=== PATIENT | female | born 1990 | race Caucasian/White ===

== ENCOUNTER 2018-10-07 09:04 | Emergency (ER) | payer BC ==
[2018-10-07 09:21] VITALS: BP 109/68
--- NOTE | 2018-10-07 10:44 | UC ---
Hip/Pelvis Pain - HPI Summary HPI Summary: 28 year old female with PMH + for anxiety, UTIs in past, presents with pelvic symtoms ~ 1 week ago noted thin white discharge wtih + vaginal itching, irritation. treated with monistat 1. Afterwards noted increased pain, swelling of labia, thin discharge. no odor. Denies fever. this AM had sexual intercourse with severe pain with penetration. no irritation around outside of vagina. Pain resolving, but was quite severe. no fever, chills. no other symptoms,- nausea, vomiting - History Of Current Complaint Chief Complaint: UCGU Stated Complaint: PELVIC PAIN Time Seen by Provider: 10/07/18 09:55 Hx Obtained From: Patient Hx Last Menstrual Period: pt has an IUD and states not getting a menses ?: No - IUD placed Onset/Duration: Sudden Onset, Lasting Weeks - x 1 week Severity Initially: Mild Severity Currently: Moderate Pain Intensity: 4 Pain Scale Used: 0-10 Numeric Location: Discrete At: - pelvic area Character Of Pain: Sharp - with sex, Aching - at rest Alleviating Factor(s): Nothing Associated Signs And Symptoms: Positive: Negative, Abdominal Pain - Allergies/Home Medications Allergies/Adverse Reactions: Allergies Allergy/AdvReac Type Severity Reaction Status Date / Time Penicillins Allergy Hives Verified 10/07/18 09:28 Sulfa (Sulfonamide Allergy Hives Verified 10/07/18 09:28 Antibiotics) Home Medications: Home Medications Iud 10/07/18 [History] busPIRone TAB* [Buspar TAB*] 7.5 mg PO BID 10/07/18 [History Confirmed 10/07/18] PMH/Surg Hx/FS Hx/Imm Hx Previously Healthy: Yes - Surgical History Surgical History: Yes Surgery Procedure, Year, and Place: 2 dermoid cysts removed from each ovary - Family History Known Family History: Positive: None Negative: Diabetes - Social History Alcohol Use: Weekly Substance Use Type: None Smoking Status (MU): Never Smoked Tobacco Review of Systems All Other Systems Reviewed And Are Negative: Yes Constitutional: Negative: Fever, Chills, Fatigue Genitourinary: Positive: Vaginal/Penile Burning, Vaginal/Penile Discharge, Vaginal/Penile Pain, Vaginal/Penile Tenderness. Negative: Dysuria, Hematuria, Frequency, Urgency Motor: Positive: Negative Is Patient Immunocompromised?: No Physical Exam Triage Information Reviewed: Yes Appearance: Well-Appearing, No Pain Distress, Well-Nourished Vital Signs: Initial Vital Signs Temp 98.1 F 10/07/18 09:13 Pulse 67 10/07/18 09:13 Resp 16 10/07/18 09:13 BP 109/68 10/07/18 09:13 Pulse Ox 100 10/07/18 09:13 Vital Signs Reviewed: Yes Eyes: Positive: Conjunctiva Clear Abdomen Description: Positive: No Organomegaly, Soft. Negative: CVA Tenderness (R), CVA Tenderness (L) Pelvic Exam: Positive: External Exam Normal - mild irritation around vagina,, Cervicitis, Discharge - yellow mucoid- but recently had sexual intercourse, Tender w/ Cervical Motion, Tender Adnexa - left sided. Negative: No Cerv. Motion Tender, No Masses, Lesions, Mass, Tender Uterus, Ulcers Musculoskeletal: Positive: ROM Intact Neurological Exam: Normal Psychological Exam: Normal Skin Exam: Normal Hip Injury Course/Dx - Course Course Of Treatment: discussed diff diagnosis- STD, irritation from Monistat, UTI. h/o UTIs- last several months ago. Patient has low suspicion for STDs- will wait to see what results return as. If non-conclusive, patient should be treated for STDs based on exam Treatment for UTI given due to h/o UTI, symptoms, and exam - Differential Dx/Diagnosis Differential Diagnosis/HQI/PQRI: Infection Provider Diagnosis: Vaginal pain Discharge - Sign-Out/Discharge Documenting (check all that apply): Patient Departure All imaging exams completed and their final reports reviewed: No Studies - Discharge Plan Condition: Good Disposition: HOME Prescriptions: Nitrofurantoin Monohyd/M-Cryst [Macrobid 100 mg Capsule] 100 mg PO BID #10 cap Patient Education Materials: Urinary Tract Infection in Women (ED), Vaginal Discharge (ED) Referrals: Malinda Mack NP [Primary Care Provider] - Additional Instructions: - ANnibiotics for UTI as directed - Follow up with urgent care within 24 hours for test results - Return or go to ER with fever, chills, increased pain - Increase fluid intake - Billing Disposition and Condition Condition: GOOD Disposition: Home
--- NOTE | 2018-10-09 09:22 | UC ---
- Progress Note Progress Note: PLEASE notify pt NO UTI STOP current antibiotic + BV start flagyl 500 2x day (#14) Course/Dx - Diagnoses Provider Diagnoses: Vaginal pain Discharge - Sign-Out/Discharge Documenting (check all that apply): Post-Discharge Follow Up All imaging exams completed and their final reports reviewed: No Studies - Discharge Plan Condition: Good Disposition: HOME Prescriptions: Nitrofurantoin Monohyd/M-Cryst [Macrobid 100 mg Capsule] 100 mg PO BID #10 cap Patient Education Materials: Urinary Tract Infection in Women (ED), Vaginal Discharge (ED) Referrals: Malinda Mack [employer] [Primary Care Provider] - Additional Instructions: - ANnibiotics for UTI as directed - Follow up with urgent care within 24 hours for test results - Return or go to ER with fever, chills, increased pain - Increase fluid intake - Billing Disposition and Condition Condition: GOOD Disposition: Home
[2018-10-10 13:11] LABS: Neisseria gonorrhoeae (GC) RNA Negative (Negative)
== END 2018-10-07 10:51 | disposition home or self-care (01) ==
LOC: UCCORT 09:04
DX: R10.2 Pelvic and perineal pain (principal); N76.0 Acute vaginitis; B96.89 Other specified bacterial agents as the cause of diseases classified elsewhere; Z88.0 Allergy status to penicillin; Z88.2 Allergy status to sulfonamides
CPT/HCPCS: 81003; 87086; 87480; 87491; 87510; 87591; 99212; G0463

== ENCOUNTER 2022-05-27 09:53 | Inpatient (IN) ==
[2022-05-27] MEDS ORDERED: Buffered Lidocaine 1% SYRIN 1 ml INTRADERM ONE (10:22)
[2022-05-27] MEDS ORDERED: Lactated Ringers 1000 ml BAG 1,000 ML IV ONE ×2 (10:22→16:22)
[2022-05-27] MEDS ORDERED: Lactated Ringers 1000 ml BAG 1,000 ML IV SCH ×3 (11:00→21:00)
[2022-05-27 11:42] LABS: ABS Eosinophils 0.1 10^3/ul (0-0.6); ABS Lymphocytes 1.4 10^3/ul (1.0-4.8); ABS Monocytes 0.5 10^3/ul (0-0.8); ABS Neutrophils 5.7 10^3/ul (1.5-7.7); Eosinophil % 1.1 %; Hematocrit 38 % (35-47); Hemoglobin 12.3 g/dL (12.0-16.0); Lymphocyte % 18.3 %; Mean Corpuscular HGB Conc 33 g/dL (31-36); Mean Corpuscular Hemoglobin 29 pg (27-31); Mean Corpuscular Volume 90 fL (80-97); Mean Platelet Volume 9.9 fL (7.4-10.4); Platelet Count 164 10^3/uL (150-450); Red Blood Count 4.21 10^6 /uL (3.70-4.87); Red Cell Distribution Width 18 % (10-15); White Blood Count 7.7 10^3/uL (3.5-10.8)
[2022-05-27] MEDS ORDERED: Oxytocin in LR 20,000 MILLI.UNIT/1,000 ML BAG IV SCH ×2 (11:45→21:00)
[2022-05-27 12:16] LABS: Urine Benzodiazepine Screen None Detected (None Detect); Urine Cannabinoids Screen None Detected (None Detect); Urine Opiates Screen None Detected (None Detect)
[2022-05-27] MEDS ORDERED: OBEPIDURAL (200 ML) 200 ML EPIDURAL ONE (15:45)
[2022-05-27] MEDS ORDERED: Lidocaine 1.5% EPI 1:200,000 30 ML SDV ONE (15:45)
[2022-05-27] MEDS ORDERED: Sodium Citrate/Citric Acid LIQ 15 ML UDC PO PRN (16:22)
[2022-05-27] MEDS ORDERED: OBEPIDURAL (200 ML) 200 ML EPIDURAL SCH (17:00)
[2022-05-27 18:02] LABS: Urine Appearance Clear; Urine Bilirubin Negative (Negative); Urine Blood 2+ (Negative); Urine Color Yellow; Urine Glucose Negative (Negative); Urine Ketones Negative (Negative); Urine Nitrite Negative (Negative); Urine Protein Negative (Negative); Urine Specific Gravity 1.009 (1.002-1.030); Urine Urobilinogen Negative (Negative)
[2022-05-27 18:04] LABS: Urine Bacteria Absent (Absent); Urine Red Blood Cell 2+(6-10/hpf) (Absent); Urine Squamous Epithelial Cell Present (Absent); Urine White Blood Cell Trace(0-5/hpf) (Absent)
[2022-05-27] MEDS ORDERED: Dibucaine 1% OINT 28.35 GM TUBE PR PRN (20:48)
[2022-05-27] MEDS ORDERED: Glycerin ADULT 2.4 gm SUPP PR PRN (20:48)
[2022-05-27] MEDS ORDERED: Witch Hazel PAD JAR TOPICAL PRN (20:48)
[2022-05-27] MEDS ORDERED: Methylergonovine 0.2 mg AMPULE 1 ml AMP IM ONE (20:50)
[2022-05-28 06:37] LABS: ABS Eosinophils 0.1 10^3/ul (0-0.6); ABS Lymphocytes 1.6 10^3/ul (1.0-4.8); ABS Monocytes 0.9 10^3/ul (0-0.8); ABS Neutrophils 8.4 10^3/ul (1.5-7.7); Eosinophil % 0.8 %; Hematocrit 33 % (35-47); Hemoglobin 10.8 g/dL (12.0-16.0); Lymphocyte % 14.3 %; Mean Corpuscular HGB Conc 33 g/dL (31-36); Mean Corpuscular Hemoglobin 30 pg (27-31); Mean Corpuscular Volume 89 fL (80-97); Mean Platelet Volume 9.3 fL (7.4-10.4); Platelet Count 138 10^3/uL (150-450); Red Blood Count 3.64 10^6 /uL (3.70-4.87); Red Cell Distribution Width 18 % (10-15); White Blood Count 10.9 10^3/uL (3.5-10.8)
[2022-05-29 07:45] VITALS: BP 108/59
== END 2022-05-29 12:14 | disposition home or self-care (01) | DRG 560 ==
LOC: MCHOBOUT 09:53 → MCHOB 10:18
PROVIDERS: ADMIT Midwife; ATTEND Midwife